=== PATIENT | male | born 1960 | race African-American/Black ===

== ENCOUNTER 2019-08-28 12:49 | Inpatient (IN) | payer OTHER ==
[2019-08-28 14:39] VITALS: BMI 21.7
--- NOTE | 2019-08-28 14:51 | HP ---
COWS - Scale Resting Pulse: 0= [place] 80 or Below Sweatin= Chills/Flushing Restless Observation: 1= Difficult to Sit Still Pupil Size: 1= Pupils >than Normal Bone or Joint Aches: 2= Severe Diffuse Aches Runny Nose/ Eye Tearin= Runny Nose/Eyes GI Upset > 30mins: 2= Nausea/Diarrhea Tremor Observation: 2= Slight Tremor Visible Yawning Observation: 2= >3x During Session Anxiety or Irritability: 2=Irritable/Anxious Goose Flesh Skin: 0=Smooth Skin COWS Score: 15 CIWA Score Nausea/Vomitin Muscle Tremors: 3 Anxiety: 3 Agitation: 3 Paroxysmal Sweats: 1-Minimal Palms Moist Orientation: 0-Oriented Tacttile Disturbances: 1-Very Mild Itch/Numbness Auditory Disturbances: 0-None Visual Disturbances: 0-None Headache: 2-Mild CIWA-Ar Total Score: 15 - Admission Criteria OASAS Guidelines: Admission for Medically Managed Detox: Requires at least one of the followin. CIWA greater than 12 2. Seizures within the past 24 hours 3. Delirium tremens within the past 24 hours 4. Hallucinations within the past 24 hours 5. Acute intervention needed for co occurring medical disorder 6. Acute intervention needed for co occurring psychiatric disorder 7. Severe withdrawal that cannot be handled at a lower level of care (continued vomiting, continued diarrhea, abnormal vital signs) requiring intravenous medication and/or fluids 8. Admitting History and Physical - Admission Chief Complaint: i need help to stop using heroin and alcohol History of Present Illness: this 59 years old male with heroi and alcohol dependence seeking help to stop, in detox,withdrawal symptom had previous admission here [facility] last setox 11/14 in [facility] completed ,just relapsed 3 moths ago nicotine dependence 2 cigarette/day denied seizure denied black out weight loss longest period of sobriety 1 year plan for outpatient program after detox History Source: Patient Limitations to Obtaining History: No Limitations - Past Medical History Cardiovascular: Yes: Murmur, Other (chest pain) ENT: Yes: Other (hearing loss in lweft ear since age of 22) Additional Past Medical History: chest pain and heart murmur - Smoking History Smoking history: Current every day smoker Have you smoked in the past 12 months: Yes Aproximately how many cigarettes per day: 2 - Alcohol/Substance Use Hx Alcohol Use: Yes History of Substance Use: reports: Cocaine, Heroin, Marijuana - Social History Usual Living Arrangement: Yes: Other (live with sister) Occupation: retired from self employed History of Recent Travel: No Admission ROS [facility] - [facility] Chief Complaint: i need help to stop using heroin,cocaine,marijuana and alcohol Allergies/Adverse Reactions: Allergies Allergy/AdvReac Type Severity Reaction Status Date / Time No Known Allergies Allergy Verified 08/28/19 14:35 History of Present Illness: this 59 years old male with heroin,alcohol,cocaine and marijuana dependence, seeking help,withdrawal symptom, living with sister,retired, had previous admission before last detox [facility] in 11/14 completed denied seizure denied syncope plan for out[patient after detox longest sobriety 1 year - Ebola screening Have you traveled outside of the country in the last 21 days: No Have you had contact with anyone from an Ebola affected area: No Do you have a fever: No - Review of Systems Constitutional: Chills, Loss of Appetite, Malaise, Night Sweats, Changes in sleep, Weakness, Unintentional Wgt. Loss EENT: reports: Tearing, Nose Congestion, Other ([place] hearing left at age of [age] years old) Respiratory: reports: No Symptoms reported Cardiac: reports: Chest Pain, Other (heart murmur) GI: reports: Nausea, Poor Appetite, Vomiting, Abdominal cramping : reports: No Symptoms Reported Musculoskeletal: reports: Back Pain, Joint Pain, Muscle Pain, Joint Stiffness Integumentary: reports: Dryness Endocrine: reports: No Symptoms Reported Hematology: reports: No Symptoms Reported Psychiatric: reports: No Sypmtoms Reported, Judgement Intact, Mood/Affect Appropiate, Orientated x3 Other Systems: Reviewed and Negative Patient History - Patient Medical History Hx Anemia: No Hx Asthma: No Hx Chronic Obstructive Pulmonary Disease (COPD): No Hx Cancer: No Hx Cardiac Disorders: Yes (murmur) Hx Congestive Heart Failure: No Hx Hypertension: No Hx Hypercholesterolemia: No Hx Pacemaker: No HX Cerebrovascular Accident: No Hx Seizures: No Hx Dementia: No Hx Diabetes: No Hx Gastrointestinal Disorders: No Hx Liver Disease: No Hx Genitourinary Disorders: No Hx Sexually Transmitted Disorders: No Hx Renal Disease (ESRD): No Hx Thyroid Disease: No Hx Human Immunodeficiency Virus (HIV): No (last 2017) Hx Hepatitis C: No Hx Depression: No Hx Suicide Attempt: No Hx Bipolar Disorder: No Hx Schizophrenia: No Other Medical History: no suicidal,no homicidal - Patient Surgical History Past Surgical History: Yes Hx Neurologic Surgery: No Hx Cataract Extraction: No Hx Cardiac Surgery: No Hx Lung Surgery: No Hx Breast Surgery: No Hx Breast Biopsy: No Hx Abdominal Surgery: No Hx Appendectomy: No Hx Cholecystectomy: No Hx Genitourinary Surgery: No Hx Section: No Hx Orthopedic Surgery: No Other Surgical History: L ear sx in from a trauma Anesthesia Reaction: No - PPD History Previous Implant?: Yes Documented Results: Negative w/o proof Implanted On Prior [facility] Admission?: Yes Date: 10/25/12 Results: 0mm PPD to be Administered?: Yes - Smoking Cessation Smoking history: Current every day smoker Have you smoked in the past 12 months: Yes Aproximately how many cigarettes per day: 2 Hx Chewing Tobacco Use: No Initiated information on smoking cessation: Yes 'Breaking Loose' booklet given: 08/28/19 - Substance & Tx. History Hx Alcohol Use: Yes Hx Substance Use: Yes Substance Use Type: Alcohol, Cocaine, Heroin, Marijuana Hx Substance Use Treatment: Yes ([facility] in 11/14) - Substances abused Heroin Substance route: Inhalation Frequency: Daily Amount used: 15 bags Age of first use: 27 Date of last use: 08/28/19 Alcohol Substance route: Oral Frequency: Daily Amount used: 4 cans of beer of 40 ozs Age of first use: 23 Date of last use: 08/27/19 Cocaine Substance route: Smoking Frequency: 1-2 times per week Amount used: 20$ Age of first use: 32 Date of last use: 08/25/19 Marijuana/Hashish Substance route: Smoking Frequency: 1-2 times per week Amount used: 5$ Age of first use: 20 Date of last use: 08/27/19 Admission Physical Exam BHS - Vital Signs Vital Signs: Vital Signs - 24 hr 08/28/19 14:35 Temperature 97.1 F L Pulse Rate 64 Respiratory 20 Rate Blood Pressure 121/82 - Physical General Appearance: Yes: Moderate Distress, Tremorous, Irritable, Sweating, Anxious HEENTM: Yes: Normal ENT Inspection, LOPEZ, Pharynx Normal, Other (hearing loss left) Respiratory: Yes: Normal Breath Sounds, No Respiratory Distress Neck: Yes: Within Normal Limits, Supple, Trachea in good position Breast: Yes: Within Normal Limits Cardiology: Yes: Within Normal Limits, Regular Rhythm, Regular Rate, S1, S2, Murmur Abdominal: Yes: Within Normal Limits, Normal Bowel Sounds, Non Tender, Flat, Soft Genitourinary: Yes: Within Normal Limits Back: Yes: Muscle Spasm Musculoskeletal: Yes: Back pain, Muscle Pain Extremities: Yes: Tremors Neurological: Yes: licensed customs broker II-XII NML intact, Fully Oriented, Alert, Motor Strength 5/5 Integumentary: Yes: Dry Lymphatic: Yes: Within Normal Limits - Diagnostic (1) Opioid dependence with withdrawal Current Visit: Yes Status: Acute (2) Alcohol dependence with uncomplicated withdrawal Current Visit: Yes Status: Acute (3) Cocaine dependence Current Visit: No Status: Active (4) Cannabis abuse Current Visit: Yes Status: Acute (5) Nicotine dependence Current Visit: Yes Status: Acute (6) Weight loss Current Visit: Yes Status: Acute (7) Heart murmur Current Visit: Yes Status: Acute Cleared for Admission [facility] - Detox or Rehab [facility] Level of Care: Medically Managed Detox Regimen/Protocol: Methadone/Librium Inpatient Rehab Admission - Rehab Decision to Admit Inpatient rehab admission?: No
[2019-08-28] MEDS ORDERED: MAG HYDROX/AL HYDROX/SIMETH 30 ML UNIT-DOSE CUP PO PRN (15:15)
[2019-08-28] MEDS ORDERED: ACETAMINOPHEN 325 MG TABLET (FP) PO PRN ×2 (15:15)
[2019-08-28] MEDS ORDERED: chlordiazePOXIDE HCL 25 MG CAPSULE PO PRN (15:15)
[2019-08-28] MEDS ORDERED: BISMUTH SUBSALICYLATE 524 MG/30 ML UD PO PRN (15:15)
[2019-08-28] MEDS ORDERED: hydrOXYzine PAMOATE 25 MG CAPSULE (FP) PO PRN (15:15)
[2019-08-28] MEDS ORDERED: MAGNESIUM HYDROX 2400MG/30ML ORAL SUSPENSION 30 ML CUP PO PRN (15:15)
[2019-08-28] MEDS ORDERED: MAGNESIUM CITRATE 300 ML BOTTLE PO PRN (15:15)
[2019-08-28] MEDS ORDERED: MENTHOL/PHENOL 1 EACH UD MM PRN (15:15)
[2019-08-28] MEDS ORDERED: IBUPROFEN 400 MG TABLET (FP) PO PRN (15:15)
[2019-08-28] MEDS ORDERED: cloNIDine HCL 0.1 MG TABLET PO PRN (15:15)
[2019-08-28] MEDS ORDERED: METHADONE HCL 10 MG TABLET (FOR DETOX USE ONLY) PO ONE (15:50)
[2019-08-28] MEDS: ASPIRIN 325 MG TABLET PO SCH (15:54)
[2019-08-28 17:15] LABS: HEMATOCRIT 38.1 % (35.4-49); HEMOGLOBIN 12.5 GM/dL (11.7-16.9); MCH 31.9 pg (25.7-33.7); MCHC 32.8 g/dl (32.0-35.9); MEAN CELL VOLUME 97.4 fl (80-96); MEAN PLT VOLUME 10.3 fl (7.5-11.1); PLATELET COUNT 185 K/MM3 (134-434); RBC 3.92 M/mm3 (4.00-5.60); RDW 14.8 % (11.9-15.9); WHITE BLOOD COUNT 4.2 K/mm3 (4.0-10.0)
[2019-08-28 17:22] LABS: ALBUMIN 3.8 g/dl (3.4-5.0); BILIRUBIN,TOTAL 0.4 mg/dL (0.2-1); BLOOD UREA NITROGEN 14.7 mg/dL (7-18); CALCIUM 8.8 mg/dL (8.5-10.1); CREATININE 1.1 mg/dL (0.55-1.3); POTASSIUM 4.8 mmol/L (3.5-5.1)
[2019-08-28] MEDS: chlordiazePOXIDE HCL 25 MG CAPSULE PO SCH ×2 (17:32→22:18)
[2019-08-28] MEDS: THIAMINE HCL 100 MG TABLET (FP) PO SCH (22:18)
[2019-08-29] MEDS: MELATONIN 5 MG TABLETS PO PRN (01:02)
[2019-08-29] MEDS: chlordiazePOXIDE HCL 25 MG CAPSULE PO SCH ×4 (05:58→22:07)
[2019-08-29] MEDS ORDERED: METHADONE HCL 10 MG TABLET (FOR DETOX USE ONLY) ONE (08:56)
[2019-08-29] MEDS ORDERED: METHADONE HCL 5 MG TABLET (FOR DETOX USE ONLY) ONE (08:56)
[2019-08-29] MEDS ORDERED: METHADONE (DETOX) 20 MG, METHADONE (DETOX) 5 MG PO ONE (10:00)
[2019-08-29] MEDS: ASPIRIN 325 MG TABLET PO SCH (10:15)
[2019-08-29] MEDS: PRENATAL VITAMINS W/ FOLIC ACID TABLET (FP) PO SCH (10:15)
--- NOTE | 2019-08-29 10:56 | PN ---
S CIWA - CIWA Score Nausea/Vomitin Muscle Tremors: 2 Anxiety: 3 Agitation: 1-Slight > Activity Paroxysmal Sweats: 2 Orientation: 0-Oriented Tacttile Disturbances: 1-Very Mild Itch/Numbness Auditory Disturbances: 0-None Visual Disturbances: 0-None Headache: 1-Very Mild CIWA-Ar Total Score: 12 BHS COWS - Scale Resting Pulse: 0= [place] 80 or Below Sweatin= Chills/Flushing Restless Observation: 1= Difficult to Sit Still Pupil Size: 0= Normal to Room Light Bone or Joint Aches: 1= Mild Discomfort Runny Nose/ Eye Tearin= Runny Nose/Eyes GI Upset > 30mins: 2= Nausea/Diarrhea Tremor Observation of Outstretched Hands: 1= Tremor [place], Not Seen Yawning Observation: 1= 1-2x During Session Anxiety or Irritability: 2=Irritable/Anxious Goose Flesh Skin: 0=Smooth Skin COWS Score: 11 S Progress Note (SOAP) Subjective: c/o of abdominal cramps, nausea, chills, sweats, interrupted sleep Objective: 08/29/19 10:39 Vital Signs Temperature 98.2 F 08/29/19 10:05 Pulse Rate 64 08/29/19 10:05 Respiratory Rate 16 08/29/19 10:05 Blood Pressure 117/83 08/29/19 10:05 O2 Sat by Pulse Oximetry (%) Laboratory Last Values WBC 4.2 K/mm3 (4.0-10.0) 08/28/19 15:15 RBC 3.92 M/mm3 (4.00-5.60) L 08/28/19 15:15 Hgb 12.5 GM/dL (11.7-16.9) 08/28/19 15:15 Hct 38.1 % (35.4-49) 08/28/19 15:15 MCV 97.4 fl (80-96) H 08/28/19 15:15 MCH 31.9 pg (25.7-33.7) 08/28/19 15:15 MCHC 32.8 g/dl (32.0-35.9) 08/28/19 15:15 RDW 14.8 % (11.9-15.9) 08/28/19 15:15 Plt Count 185 K/MM3 (134-434) 08/28/19 15:15 MPV 10.3 fl (7.5-11.1) D 08/28/19 15:15 Sodium 141 mmol/L (136-145) 08/28/19 15:15 Potassium 4.8 mmol/L (3.5-5.1) 08/28/19 15:15 Chloride 106 mmol/L (98-107) 08/28/19 15:15 Carbon Dioxide 30 mmol/L (21-32) 08/28/19 15:15 Anion Gap 4 MMOL/L (8-16) L 08/28/19 15:15 BUN 14.7 mg/dL (7-18) 08/28/19 15:15 Creatinine 1.1 mg/dL (0.55-1.3) 08/28/19 15:15 Est GFR (CKD-EPI)AfAm 85.91 08/28/19 15:15 Est GFR (CKD-EPI)NonAf 74.12 08/28/19 15:15 Random Glucose 97 mg/dL (74-106) 08/28/19 15:15 Calcium 8.8 mg/dL (8.5-10.1) 08/28/19 15:15 Total Bilirubin 0.4 mg/dL (0.2-1) 08/28/19 15:15 AST 92 U/L (15-37) H 08/28/19 15:15 ALT 61 U/L (13-61) 08/28/19 15:15 Alkaline Phosphatase 110 U/L (45-117) 08/28/19 15:15 Total Protein 7.0 g/dl (6.4-8.2) 08/28/19 15:15 Albumin 3.8 g/dl (3.4-5.0) 08/28/19 15:15 labs reviewed d/c acetaminophen Assessment: 08/29/19 11:05 Patient Aox3 no acute distress EENT WNL no abdominal tenderness full ROM no gait disturbance withdrawal sx Plan: increase po fluids continue detox continue to monitor
[2019-08-29] MEDS ORDERED: FLU VACCINE QUAD 60 MCG/0.5 ML (MDV 19-20) IM ONE (12:00)
--- NOTE | 2019-08-29 17:46 | EKG ---
Test Reason : Blood Pressure : / mmHG Vent. Rate : 054 BPM Atrial Rate : 054 BPM P-R Int : 124 ms QRS Dur : 082 ms QT Int : 460 ms P-R-T Axes : 041 065 164 degrees QTc Int : 436 ms SINUS BRADYCARDIA POSSIBLE LEFT ATRIAL ENLARGEMENT LEFT VENTRICULAR HYPERTROPHY WITH REPOLARIZATION ABNORMALITY ABNORMAL ECG NO PREVIOUS ECGS AVAILABLE CLINICAL CORRELATION IS RECOMMENDED Confirmed by ANGELA AYERS MD ([id number]) on 08/29/2019 5:46:08 PM Referred By: Confirmed By:ANGELA AYERS MD
[2019-08-29] MEDS: THIAMINE HCL 100 MG TABLET (FP) PO SCH (22:07)
[2019-08-30] MEDS: METHOCARBAMOL 500 MG TABLET PO PRN ×3 (03:13→22:23)
[2019-08-30] MEDS: chlordiazePOXIDE HCL 25 MG CAPSULE PO SCH ×4 (05:46→22:22)
[2019-08-30] MEDS ORDERED: METHADONE HCL 10 MG TABLET (FOR DETOX USE ONLY) PO ONE (10:00)
[2019-08-30] MEDS: PRENATAL VITAMINS W/ FOLIC ACID TABLET (FP) PO SCH (10:29)
[2019-08-30] MEDS: ASPIRIN 325 MG TABLET PO SCH (10:29)
--- NOTE | 2019-08-30 10:29 | PN ---
[facility] CIWA - CIWA Score Nausea/Vomitin-No Nausea/No Vomiting Muscle Tremors: 2 Anxiety: 3 Agitation: 2 Paroxysmal Sweats: 3 Orientation: 0-Oriented Tacttile Disturbances: 0-None Auditory Disturbances: 0-None Visual Disturbances: 0-None Headache: 1-Very Mild CIWA-Ar Total Score: 11 S COWS - Scale Resting Pulse: 0= [place] 80 or Below Sweatin= Beads of Sweat on Face Restless Observation: 1= Difficult to Sit Still Pupil Size: 0= Normal to Room Light Bone or Joint Aches: 2= Severe Diffuse Aches Runny Nose/ Eye Tearin= None GI Upset > 30mins: 0= None Tremor Observation of Outstretched Hands: 2= Slight Tremor Visible Yawning Observation: 1= 1-2x During Session Anxiety or Irritability: 2=Irritable/Anxious Goose Flesh Skin: 0=Smooth Skin COWS Score: 11 S Progress Note (SOAP) Subjective: c/o sweats, anxiety, headache, sweats, shakes, and muscle aches. Objective: 08/30/19 10:31 Vital Signs 08/30/19 08/30/19 08/30/19 03:30 07:23 09:35 Temperature 97.5 F L 98.1 F Pulse Rate 69 65 Respiratory 18 18 18 Rate Blood Pressure 139/83 130/84 Laboratory Last Values WBC 4.2 K/mm3 (4.0-10.0) 08/28/19 15:15 RBC 3.92 M/mm3 (4.00-5.60) L 08/28/19 15:15 Hgb 12.5 GM/dL (11.7-16.9) 08/28/19 15:15 Hct 38.1 % (35.4-49) 08/28/19 15:15 MCV 97.4 fl (80-96) H 08/28/19 15:15 MCH 31.9 pg (25.7-33.7) 08/28/19 15:15 MCHC 32.8 g/dl (32.0-35.9) 08/28/19 15:15 RDW 14.8 % (11.9-15.9) 08/28/19 15:15 Plt Count 185 K/MM3 (134-434) 08/28/19 15:15 MPV 10.3 fl (7.5-11.1) D 08/28/19 15:15 Sodium 141 mmol/L (136-145) 08/28/19 15:15 Potassium 4.8 mmol/L (3.5-5.1) 08/28/19 15:15 Chloride 106 mmol/L (98-107) 08/28/19 15:15 Carbon Dioxide 30 mmol/L (21-32) 08/28/19 15:15 Anion Gap 4 MMOL/L (8-16) L 08/28/19 15:15 BUN 14.7 mg/dL (7-18) 08/28/19 15:15 Creatinine 1.1 mg/dL (0.55-1.3) 08/28/19 15:15 Est GFR (CKD-EPI)AfAm 85.91 08/28/19 15:15 Est GFR (CKD-EPI)NonAf 74.12 08/28/19 15:15 Random Glucose 97 mg/dL (74-106) 08/28/19 15:15 Calcium 8.8 mg/dL (8.5-10.1) 08/28/19 15:15 Total Bilirubin 0.4 mg/dL (0.2-1) 08/28/19 15:15 AST 92 U/L (15-37) H 08/28/19 15:15 ALT 61 U/L (13-61) 08/28/19 15:15 Alkaline Phosphatase 110 U/L (45-117) 08/28/19 15:15 Total Protein 7.0 g/dl (6.4-8.2) 08/28/19 15:15 Albumin 3.8 g/dl (3.4-5.0) 08/28/19 15:15 RPR Titer Nonreactive (NONREACTIVE) 08/28/19 15:15 HIV 1&2 Antibody Screen Negative 08/29/19 05:45 HIV P24 Antigen Negative 08/29/19 05:45 Labs noted. Assessment: 08/30/19 10:31 AOX3, in no acute respiratory distress. Full ROM, ambulating in the unit. Withdrawal symptoms. Plan: continue detox. Increase fluids.
[2019-08-30 11:18] LABS: PH,URINE 8.5 (5.0-8.0); URINE APPEARANCE CLEAR; URINE BILIRUBIN NEGATIVE (NEGATIVE); URINE COLOR YELLOW; URINE GLUCOSE (UA) NEGATIVE (NEGATIVE); URINE KETONE NEGATIVE (NEGATIVE); URINE LEUK ESTERASE NEGATIVE (NEGATIVE); URINE NITRITE NEGATIVE (NEGATIVE); URINE PROTEIN NEGATIVE (NEGATIVE); URINE UROBILINOGEN 0.2 mg/dL (0.2-1.0)
[2019-08-30] MEDS: THIAMINE HCL 100 MG TABLET (FP) PO SCH (22:22)
[2019-08-31] MEDS ORDERED: chlordiazePOXIDE HCL 10 MG CAPSULE PO PRN
[2019-08-31] MEDS: chlordiazePOXIDE HCL 10 MG CAPSULE PO SCH ×4 (05:38→22:22)
[2019-08-31] MEDS ORDERED: METHADONE HCL 5 MG TABLET (FOR DETOX USE ONLY) ONE (09:39)
[2019-08-31] MEDS ORDERED: METHADONE HCL 10 MG TABLET (FOR DETOX USE ONLY) ONE (09:40)
[2019-08-31] MEDS ORDERED: METHADONE (DETOX) 10 MG, METHADONE (DETOX) 5 MG PO ONE (10:00)
[2019-08-31] MEDS: PRENATAL VITAMINS W/ FOLIC ACID TABLET (FP) PO SCH (10:17)
[2019-08-31] MEDS: ASPIRIN 325 MG TABLET PO SCH (10:17)
--- NOTE | 2019-08-31 11:06 | PN ---
[facility] CIWA - CIWA Score Nausea/Vomitin-Mild Nausea/No Vomiting Muscle Tremors: 1-None Visible, but [place] Anxiety: 1-Mildly Anxious Agitation: 1-Slight > Activity Paroxysmal Sweats: 1-Minimal Palms Moist Orientation: 0-Oriented Tacttile Disturbances: 0-None Auditory Disturbances: 0-None Visual Disturbances: 0-None Headache: 1-Very Mild CIWA-Ar Total Score: 6 BHS COWS - Scale Resting Pulse: 0= [place] 80 or Below Sweatin= Chills/Flushing Restless Observation: 1= Difficult to Sit Still Pupil Size: 0= Normal to Room Light Bone or Joint Aches: 1= Mild Discomfort Runny Nose/ Eye Tearin= Nasal Congestion GI Upset > 30mins: 0= None Tremor Observation of Outstretched Hands: 1= Tremor [place], Not Seen Yawning Observation: 0= None Anxiety or Irritability: 1=Feels Anxious/Irritable Goose Flesh Skin: 0=Smooth Skin COWS Score: 6 [facility] Progress Note (SOAP) Subjective: pt states doing well with detox protocols O: Vital Signs - 24 hr 08/30/19 08/30/19 08/30/19 12:56 17:10 21:25 Temperature 98.2 F 97.7 F 98.1 F Pulse Rate 69 61 70 Respiratory 18 18 18 Rate Blood Pressure 128/90 121/82 116/89 08/31/19 08/31/19 08/31/19 00:30 06:00 09:37 Temperature 97.7 F 97.7 F Pulse Rate 59 L 84 Respiratory 18 18 18 Rate Blood Pressure 119/75 103/74 Laboratory Tests 08/28/19 08/28/19 08/28/19 15:15 15:15 15:15 WBC 4.2 RBC 3.92 L Hgb 12.5 Hct 38.1 MCV 97.4 H MCH 31.9 MCHC 32.8 RDW 14.8 Plt Count 185 MPV 10.3 D Sodium 141 Potassium 4.8 Chloride 106 Carbon Dioxide 30 Anion Gap 4 L BUN 14.7 Creatinine 1.1 Est GFR (CKD-EPI)AfAm 85.91 Est GFR (CKD-EPI)NonAf 74.12 Random Glucose 97 Calcium 8.8 Total Bilirubin 0.4 AST 92 H ALT 61 Alkaline Phosphatase 110 Total Protein 7.0 Albumin 3.8 Urine Color Urine Appearance Urine pH Ur Specific [place] Urine Protein Urine Glucose (UA) Urine Ketones Urine Blood Urine Nitrite Urine Bilirubin Urine Urobilinogen Ur Leukocyte Esterase RPR Titer Nonreactive HIV 1&2 Antibody Screen HIV P24 Antigen 08/29/19 08/30/19 05:45 08:10 WBC RBC Hgb Hct MCV MCH MCHC RDW Plt Count MPV Sodium Potassium Chloride Carbon Dioxide Anion Gap BUN Creatinine Est GFR (CKD-EPI)AfAm Est GFR (CKD-EPI)NonAf Random Glucose Calcium Total Bilirubin AST ALT Alkaline Phosphatase Total Protein Albumin Urine Color Yellow Urine Appearance Clear Urine pH 8.5 H D Ur Specific [place] 1.006 L Urine Protein Negative Urine Glucose (UA) Negative Urine Ketones Negative Urine Blood Negative Urine Nitrite Negative Urine Bilirubin Negative Urine Urobilinogen 0.2 Ur Leukocyte Esterase Negative RPR Titer HIV 1&2 Antibody Screen Negative HIV P24 Antigen Negative a/p AUD/OUD: continue detox protocols labs and VS WNL
[2019-08-31] MEDS: THIAMINE HCL 100 MG TABLET (FP) PO SCH (22:22)
[2019-08-31] MEDS: METHOCARBAMOL 500 MG TABLET PO PRN (22:23)
[2019-09-01] MEDS: chlordiazePOXIDE HCL 10 MG CAPSULE PO SCH ×2 (05:45→16:57)
[2019-09-01] MEDS ORDERED: METHADONE HCL 10 MG TABLET (FOR DETOX USE ONLY) PO ONE (10:00)
[2019-09-01] MEDS: PRENATAL VITAMINS W/ FOLIC ACID TABLET (FP) PO SCH (10:17)
[2019-09-01] MEDS: ASPIRIN 325 MG TABLET PO SCH (10:18)
--- NOTE | 2019-09-01 14:25 | PN ---
[facility] CIWA - CIWA Score Nausea/Vomitin-Mild Nausea/No Vomiting Muscle Tremors: 1-None Visible, but [place] Anxiety: 1-Mildly Anxious Agitation: 1-Slight > Activity Paroxysmal Sweats: 1-Minimal Palms Moist Orientation: 0-Oriented Tacttile Disturbances: 0-None Auditory Disturbances: 0-None Visual Disturbances: 0-None Headache: 0-None Present CIWA-Ar Total Score: 5 S COWS - Scale Resting Pulse: 0= [place] 80 or Below Sweatin= No chills or Flushing Restless Observation: 0= Sits Still Pupil Size: 0= Normal to Room Light Bone or Joint Aches: 1= Mild Discomfort Runny Nose/ Eye Tearin= None GI Upset > 30mins: 1= Stomach Cramp Tremor Observation of Outstretched Hands: 1= Tremor [place], Not Seen Yawning Observation: 0= None Anxiety or Irritability: 0= None Goose Flesh Skin: 0=Smooth Skin COWS Score: 3 S Progress Note (SOAP) Subjective: Pt states he is OK. O: Vital Signs - 24 hr 08/31/19 08/31/19 09/01/19 17:29 21:51 00:30 Temperature 98.1 F 98.1 F Pulse Rate 69 66 Respiratory 18 18 18 Rate Blood Pressure 105/67 119/70 09/01/19 09/01/19 09/01/19 03:48 08:20 10:43 Temperature 97.7 F 98.1 F Pulse Rate 61 79 Respiratory 16 18 18 Rate Blood Pressure 116/79 104/70 Laboratory Tests 08/28/19 08/28/19 08/28/19 15:15 15:15 15:15 WBC 4.2 RBC 3.92 L Hgb 12.5 Hct 38.1 MCV 97.4 H MCH 31.9 MCHC 32.8 RDW 14.8 Plt Count 185 MPV 10.3 D Sodium 141 Potassium 4.8 Chloride 106 Carbon Dioxide 30 Anion Gap 4 L BUN 14.7 Creatinine 1.1 Est GFR (CKD-EPI)AfAm 85.91 Est GFR (CKD-EPI)NonAf 74.12 Random Glucose 97 Calcium 8.8 Total Bilirubin 0.4 AST 92 H ALT 61 Alkaline Phosphatase 110 Total Protein 7.0 Albumin 3.8 Urine Color Urine Appearance Urine pH Ur Specific [place] Urine Protein Urine Glucose (UA) Urine Ketones Urine Blood Urine Nitrite Urine Bilirubin Urine Urobilinogen Ur Leukocyte Esterase RPR Titer Nonreactive HIV 1&2 Antibody Screen HIV P24 Antigen 08/29/19 08/30/19 05:45 08:10 WBC RBC Hgb Hct MCV MCH MCHC RDW Plt Count MPV Sodium Potassium Chloride Carbon Dioxide Anion Gap BUN Creatinine Est GFR (CKD-EPI)AfAm Est GFR (CKD-EPI)NonAf Random Glucose Calcium Total Bilirubin AST ALT Alkaline Phosphatase Total Protein Albumin Urine Color Yellow Urine Appearance Clear Urine pH 8.5 H D Ur Specific [place] 1.006 L Urine Protein Negative Urine Glucose (UA) Negative Urine Ketones Negative Urine Blood Negative Urine Nitrite Negative Urine Bilirubin Negative Urine Urobilinogen 0.2 Ur Leukocyte Esterase Negative RPR Titer HIV 1&2 Antibody Screen Negative HIV P24 Antigen Negative a/p: continue dual detox protocols d/c tomorrow- pt will talk to couselor re [facility] rx- MAT or rehab
[2019-09-01] MEDS: METHOCARBAMOL 500 MG TABLET PO PRN (22:09)
[2019-09-01] MEDS: THIAMINE HCL 100 MG TABLET (FP) PO SCH (22:09)
[2019-09-01] MEDS: MELATONIN 5 MG TABLETS PO PRN (22:09)
[2019-09-02] MEDS ORDERED: chlordiazePOXIDE HCL 10 MG CAPSULE PO ONE (05:00)
[2019-09-02] MEDS ORDERED: METHADONE HCL 5 MG TABLET (FOR DETOX USE ONLY) PO ONE (06:00)
[2019-09-02 09:05] VITALS: BP 90/60; PULSE 76; TEMP 98.2
--- NOTE | 2019-09-02 16:01 | DS ---
[facility] Detox Discharge Summary Admission Date: 08/28/19 Discharge Date: 09/02/19 - History Present History: Alcohol Dependence, Cannabis Dependence, Cocaine Dependence, Opioid Dependence Additional Comments: Pt completed detox successfully and discharged safely. Instructed to follow up with PCP within 1-2 weeks. - Physical Exam Results Vital Signs: Vital Signs Temperature 98.2 F 09/02/19 09:04 Pulse Rate 76 09/02/19 09:04 Respiratory Rate 18 09/02/19 09:04 Blood Pressure 90/60 09/02/19 09:04 O2 Sat by Pulse Oximetry (%) Pertinent Admission Physical Exam Findings: Withdrawal sxs Laboratory Tests 08/28/19 08/28/19 08/28/19 15:15 15:15 15:15 WBC 4.2 RBC 3.92 L Hgb 12.5 Hct 38.1 MCV 97.4 H MCH 31.9 MCHC 32.8 RDW 14.8 Plt Count 185 MPV 10.3 D Sodium 141 Potassium 4.8 Chloride 106 Carbon Dioxide 30 Anion Gap 4 L BUN 14.7 Creatinine 1.1 Est GFR (CKD-EPI)AfAm 85.91 Est GFR (CKD-EPI)NonAf 74.12 Random Glucose 97 Calcium 8.8 Total Bilirubin 0.4 AST 92 H ALT 61 Alkaline Phosphatase 110 Total Protein 7.0 Albumin 3.8 Urine Color Urine Appearance Urine pH Ur Specific [place] Urine Protein Urine Glucose (UA) Urine Ketones Urine Blood Urine Nitrite Urine Bilirubin Urine Urobilinogen Ur Leukocyte Esterase RPR Titer Nonreactive HIV 1&2 Antibody Screen HIV P24 Antigen 08/29/19 08/30/19 05:45 08:10 WBC RBC Hgb Hct MCV MCH MCHC RDW Plt Count MPV Sodium Potassium Chloride Carbon Dioxide Anion Gap BUN Creatinine Est GFR (CKD-EPI)AfAm Est GFR (CKD-EPI)NonAf Random Glucose Calcium Total Bilirubin AST ALT Alkaline Phosphatase Total Protein Albumin Urine Color Yellow Urine Appearance Clear Urine pH 8.5 H D Ur Specific [place] 1.006 L Urine Protein Negative Urine Glucose (UA) Negative Urine Ketones Negative Urine Blood Negative Urine Nitrite Negative Urine Bilirubin Negative Urine Urobilinogen 0.2 Ur Leukocyte Esterase Negative RPR Titer HIV 1&2 Antibody Screen Negative HIV P24 Antigen Negative Labs reviewed: AST 92 (high): most likely due to chronic alcoholism, follow up with PCP for monitoring, encouraged abstinence - Treatment Hospital Course: Detox Protocol Followed, Detoxed Safely, Responded well, Discharged Condition Good - Medication Discharge Medications: Ambulatory Orders Aspirin [ASA -] 325 mg PO DAILY #0 tablet 10/29/12 - Diagnosis (1) Transaminitis Status: Acute (2) Cocaine dependence Status: Active (3) Alcohol dependence with uncomplicated withdrawal Status: Acute (4) Cannabis abuse Status: Acute (5) Nicotine dependence Status: Chronic (6) Opioid dependence with withdrawal Status: Acute - AMA Did Patient Leave Against Medical Advice: No (Instructed to follow up with PCP within 1-2 weeks)
== END 2019-09-02 09:34 | disposition home or self-care (01) | DRG 773 ==
LOC: YASAS 12:49 → Y6N 15:27
PROVIDERS: ADMIT Allergy & Immunology; ATTEND Allergy & Immunology
PROC: HZ2ZZZZ Detoxification Services for Substance Abuse Treatment (ICD-10-PCS; principal; 2019-08-28)
DX: F11.23 Opioid dependence with withdrawal (principal); F10.230 Alcohol dependence with withdrawal, uncomplicated; F14.20 Cocaine dependence, uncomplicated; F12.20 Cannabis dependence, uncomplicated; F17.210 Nicotine dependence, cigarettes, uncomplicated; R74.0 Nonspecific elevation of levels of transaminase and lactic acid dehydrogenase [LDH]; R63.4 Abnormal weight loss; R01.1 Cardiac murmur, unspecified; Z59.0 Homelessness
CPT/HCPCS: 36415; 80053; 81003; 85027; 86593; 87389; 93005; 93010